=== PATIENT | female | born 1995 | race African-American/Black ===

== ENCOUNTER 2016-07-30 13:20 | Emergency (ER) | payer OTHER ==
[~2016-07-30] VITALS: Ht 165.1 cm; Wt 77.1 kg
[2016-07-30 13:38] VITALS: BP 110/80
[2016-07-30] MEDS ORDERED: ACETAMINOPHEN 500 MG TAB PO ONE (13:45)
[2016-07-30 14:02] LABS: Urine Bilirubin Negative (Negative); Urine Blood 2+ /uL (Negative); Urine Color Yellow (Yellow); Urine Glucose Normal (Normal); Urine Ketone 4+ (Negative); Urine Mucus FEW (None Seen); Urine Nitrite Negative (Negative); Urine RBC 4 /hpf (0 - 4); Urine Squamous Epithelial Cell MOD /hpf (<5); Urine Urobilinogen Normal (Negative); Urine pH 5.5 (5.0-8.0)
[2016-07-30] MEDS ORDERED: cefTRIAXone SOD 1,000 MG VL IM ONE (15:30)
== END 2016-07-30 16:03 | disposition home or self-care (01) ==
LOC: ER 13:23
DX: J03.80 Acute tonsillitis due to other specified organisms (principal)
CPT/HCPCS: 81001; 96372; 99283; J0696

== ENCOUNTER 2016-07-31 15:26 | Emergency (ER) | payer OTHER ==
[~2016-07-31] VITALS: Ht 167.6 cm; Wt 79.4 kg
[2016-07-31 16:24] LABS: Basophils # (auto) 0 uL; DEFINITIVE VIEW TRANSMISSION; Eosinophils # (auto) 0 uL; Eosinophils % (auto) 0.3 % (0.0-7.0); Hemoglobin 11.3 g/dL (12.2-16.2); Lymphocytes # (auto) 1.3 uL; Lymphocytes % (auto) 11.1 % (10.0-50.0); Mean Corpuscular Hemoglobin 22.3 pg (28.0-32.0); Mean Corpuscular Hgb Conc. 31.3 g/dL (32.0-36.0); Mean Corpuscular Volume 71.3 fL (80.0-100.0); Mean Platelet Volume 8.4 fL (7.4-10.4); Monocytes # (auto) 1.4 uL; Monocytes % (auto) 11.9 % (0.0-12.0); Neutrophils # (auto) 8.7 uL; Neutrophils % (auto) 76.7 % (37.0-80.0); Platelet Count (auto) 347 10^3/uL (140-450); Red Cell Distribution Width 17.6 % (11.6-16.0); White Blood Cell 11.4 10^3/uL (4.4-10.8)
[2016-07-31 17:34] VITALS: BP 128/84
[2016-07-31 18:03] LABS: Urine Bilirubin Negative (Negative); Urine Blood 3+ /uL (Negative); Urine Color Yellow (Yellow); Urine Glucose Normal (Normal); Urine Ketone 3+ (Negative); Urine Mucus FEW (None Seen); Urine Nitrite Negative (Negative); Urine RBC 499 /hpf (0 - 4); Urine Squamous Epithelial Cell FEW /hpf (<5)
== END 2016-07-31 19:01 | disposition home or self-care (01) ==
LOC: ER 15:30
DX: O03.9 Complete or unspecified spontaneous abortion without complication (principal); F17.210 Nicotine dependence, cigarettes, uncomplicated; Z3A.01 Less than 8 weeks gestation of pregnancy
CPT/HCPCS: 36415; 76801; 81001; 84702; 85025; 85049

== ENCOUNTER 2016-09-10 21:35 | Emergency (ER) | payer OTHER ==
[~2016-09-10] VITALS: Ht 167.6 cm; Wt 99.8 kg
[2016-09-10 22:34] LABS: Basophils # (auto) 0 uL; Basophils % (auto) 0.2 % (0.0-2.0); DEFINITIVE VIEW TRANSMISSION; Eosinophils # (auto) 0 uL; Eosinophils % (auto) 0.5 % (0.0-7.0); Hematocrit 33.6 % (36.0-46.0); Hemoglobin 10.6 g/dL (12.2-16.2); Lymphocytes # (auto) 1.6 uL; Lymphocytes % (auto) 16.3 % (10.0-50.0); Mean Corpuscular Hemoglobin 22.4 pg (28.0-32.0); Mean Corpuscular Hgb Conc. 31.6 g/dL (32.0-36.0); Mean Corpuscular Volume 70.6 fL (80.0-100.0); Mean Platelet Volume 8.5 fL (7.4-10.4); Monocytes # (auto) 0.6 uL; Monocytes % (auto) 6.2 % (0.0-12.0); Neutrophils # (auto) 7.5 uL; Neutrophils % (auto) 76.8 % (37.0-80.0); Platelet Count (auto) 374 10^3/uL (140-450); Red Cell Distribution Width 18.3 % (11.6-16.0); White Blood Cell 9.8 10^3/uL (4.4-10.8)
[2016-09-10 23:07] LABS: BUN/Creatinine Ratio 13.1; Calcium 8.5 mg/dL (8.5-10.1)
[2016-09-10 23:09] LABS: Bilirubin, Total 0.1 mg/dL (0.2-1.0); Total Protein 8.2 g/dL (6.4-8.2)
[2016-09-11] MEDS ORDERED: MORPHINE SULF INJ 2 MG/ML SYRINGE 1ML ONE (04:16)
[2016-09-11] MEDS ORDERED: MORPHINE SULF INJ 2 MG/ML SYRINGE 1ML IV ONE (04:30)
[2016-09-11] MEDS ORDERED: SODIUM CHLORIDE 0.9% 1,000 ML IV ONE (04:30)
[2016-09-11] MEDS ORDERED: ONDANSETRON HCL 4 MG/2 ML VIAL IV ONE (04:30)
[2016-09-11 05:08] LABS: Urine Bilirubin Negative (Negative); Urine Color Yellow (Yellow); Urine Glucose Normal (Normal); Urine Hyaline Cast FEW /lpf (0 - 2); Urine Ketone Negative (Negative); Urine Mucus FEW (None Seen); Urine Nitrite Negative (Negative); Urine RBC 51 /hpf (0 - 4); Urine Squamous Epithelial Cell MANY /hpf (<5)
[2016-09-11 05:09] LABS: Urine Blood 2+ /uL (Negative)
[2016-09-11] MEDS ORDERED: SODIUM CHLORIDE 0.9% 1,000 ML IVB ONE (08:51)
[2016-09-11] MEDS ORDERED: METOCLOPRAMIDE HCL 5MG/ml INJ 2ml VIAL IV ONE (09:00)
[2016-09-11] MEDS ORDERED: KETOROLAC TROMETH 30 MG/ML 1ML VIAL IV ONE ×2 (09:00→14:00)
[2016-09-11] MEDS ORDERED: PROMETHAZINE HCL 25 MG/ML 1ML IV ONE (14:00)
[2016-09-11 14:08] VITALS: BP 123/88
== END 2016-09-11 16:33 | disposition home or self-care (01) ==
LOC: ER 21:38
DX: N83.202 Unspecified ovarian cyst, left side (principal); N39.0 Urinary tract infection, site not specified; F17.210 Nicotine dependence, cigarettes, uncomplicated
CPT/HCPCS: 36415; 76856; 80053; 81001; 81025; 85025; 96361; 96374; 96375; 96376; 99285; J1885; J2270; J2405; J2550; J2765; J7030

== ENCOUNTER 2016-09-14 20:06 | Emergency (ER) | payer OTHER ==
[~2016-09-14] VITALS: Ht 165.1 cm; Wt 77.1 kg
[2016-09-14 20:11] VITALS: BP 126/81
== END 2016-09-15 01:07 | disposition left against medical advice (07) ==
LOC: EDBD 20:06 → ER 20:12
DX: R10.32 Left lower quadrant pain (principal); R11.0 Nausea; Z53.21 Procedure and treatment not carried out due to patient leaving prior to being seen by health care provider
CPT/HCPCS: 76856